=== PATIENT | male | born 1955 | race Caucasian/White ===

== ENCOUNTER 2018-08-03 11:44 | Observation (INO) ==
[2018-08-03 12:07] LABS: Baso % (Auto) 0.9 % (0.0-2.0); Eos # (Auto) 0.5 th/mm3 (0.0-0.4); Eos % (Auto) 10.9 % (0.0-4.0); Hematocrit 41.7 % (39.0-51.0); Hemoglobin 14.5 gm/dL (13.0-17.0); Lymph # (Auto) 1.2 th/mm3 (1.0-4.8); Lymph % (Auto) 23.3 % (9.0-44.0); Mean Corpuscular HGB Conc 34.8 % (32.0-36.0); Mean Corpuscular Hemoglobin 31.9 pg (27.0-34.0); Mean Corpuscular Volume 91.8 fL (80.0-100.0); Mean Platelet Volume 7.7 fL (7.0-11.0); Mono # (Auto) 0.5 th/mm3 (0.0-0.9); Mono % (Auto) 9.6 % (0.0-8.0); Neut # (Auto) 2.8 th/mm3 (1.8-7.7); Neut % (Auto) 55.3 % (16.0-70.0); Platelet Count 195 th/mm3 (150-450); Red Blood Count 4.55 mil/mm3 (4.50-5.90); Red Cell Distribution Width 13.8 % (11.6-17.2)
--- NOTE | 2018-08-03 12:12 | ED ---
HPI General Chief Complaint: Chest Pain Stated Complaint: chest pain/bp up/lt arm pain/sob Time Seen by Provider: 08/03/18 11:53 Source: patient and family Mode of arrival: ambulatory Limitations: no limitations History of Present Illness HPI narrative: Patient is a 63-year-old male who presents the emergency room with his for evaluation of chest pain and confusion. He reports that about 2 hours ago, he was sitting down with his and all of a sudden he became confused. reports that patient was unresponsive for a few minutes and then was able to come to. Patient reports that he began to have left sided chest pain which radiated up his neck and then down his left arm. Reports shortness of breath with this chest pain. Patient denies any diaphoresis, denies any nausea or vomiting with the symptoms. did take his blood pressure at home and noted a systolic blood pressure in the 200s. Patient reports a strong history of hypertension, he did take his antihypertensives this morning. Patient reports that this has happened to him multiple times in the past, his doctor at the [facility] has told him that his symptoms are most likely cardiac in nature. He was told that if he had return of the symptoms, he was to return to the emergency room for evaluation. Patient also reports that he was due for an ultrasound of his heart as well as further workup for his chest pain coming up this week. Patient does not have a wool classer, he has never had an KS, has never had a CABG in the past. MD complaint: Reports chest pain STEMI Alert: No Onset (ago): hour(s) (2 hours) Duration: constant Onset: during rest Pain location: Reports left chest Severity: moderate Quality: Reports aching Pain radiation: Reports LUE and neck Relieving factors: nothing Exacerbating factors: nothing Context: Reports recent illness Associated symptoms: Reports dyspnea Treatments prior to arrival chest pain: Reports none Related Data Home Medications Medication Instructions Recorded Confirmed allopurinol 300 mg PO DAILY 08/03/18 08/03/18 amlodipine 10 mg PO DAILY 08/03/18 08/03/18 atorvastatin 10 mg PO DAILY 08/03/18 08/03/18 hydrochlorothiazide 12.5 mg PO DAILY 08/03/18 08/03/18 levetiracetam 500 mg PO DAILY 08/03/18 08/03/18 thiamine HCl (vitamin B1) 100 mg PO DAILY 08/03/18 08/03/18 Allergies Allergy/AdvReac Type Severity Reaction Status Date / Time codeine Allergy Severe Hives Verified 08/03/18 12:19 tramadol AdvReac Severe UNABLE TO Verified 08/03/18 12:19 URINATE *MDRO Multi-Drug Resistant AdvReac Unknown Hives Uncoded 08/03/18 12:00 Organism Review of Systems ROS: all other systems reviewed are negative [facility] Medical History Medical History Gout (Acute) High cholesterol (Acute) History of intestine removal (Acute) History of seizure (Acute) RA (rheumatoid arthritis) (Acute) Hypertension (Acute) Surgical History Surgical History Hx of appendectomy (Acute) Social History Social History Substance History: No History of Abuse Smoking Status: Never smoker How Often Do You Have a Drink Containing Alcohol: Never Recent Travel in [facility] within the Last 8 Weeks: No Recent Out of Country Travel within the Last 8 Weeks: No Exam Narrative Exam Narrative: GENERAL: moderate distress SKIN: Focused skin assessment warm/dry. HEAD: Atraumatic. Normocephalic. EYES: Pupils equal and round. No scleral icterus. No injection or drainage. ENT: No nasal bleeding or discharge. Mucous membranes pink and moist. NECK: Trachea midline. No JVD. CARDIOVASCULAR: Regular rate and rhythm. No murmur appreciated. RESPIRATORY: No accessory muscle use. Clear to auscultation. Breath sounds equal bilaterally. GASTROINTESTINAL: Abdomen soft, non-tender, nondistended. Hepatic and splenic margins not palpable. MUSCULOSKELETAL: No obvious deformities. No clubbing. No cyanosis. No edema. NEUROLOGICAL: Awake and alert. No obvious cranial nerve deficits. Motor grossly within normal limits. Normal speech. CN 2-12 grossly intact with no neurological deficits PSYCHIATRIC: Anxious mood and affect; insight and judgment normal. Course Initial Documented Vital Signs Temperature 98.9 F 08/03/18 11:52 Pulse Rate 58 L 08/03/18 11:52 Respiratory Rate 20 08/03/18 11:52 Blood Pressure 212/117 H 08/03/18 11:52 Pulse Oximetry 96 08/03/18 11:52 Last Documented Vital Signs Temperature 98.9 F 08/03/18 11:52 Pulse Rate 57 L 08/03/18 13:50 Respiratory Rate 20 08/03/18 13:50 Blood Pressure 148/94 H 08/03/18 13:50 Pulse Oximetry 97 08/03/18 13:50 Medical Decision Making MDM Narrative Medical decision making narrative: During the course of the patients emergency department visit, the patients history, examination, and differential diagnosis were reviewed with the patient. The patient was placed on a secured entrance monitor with oximetry and frequent blood pressure monitoring. The patient had an IV access obtained and blood work sent for analysis. The patient was initially provided an aspirin as well as SL nitro The patients laboratory studies were reviewed and remarkable for trop neg x 1 Radiology studies were reviewed and remarkable: CT of the head negative with no evidence of acute infarct, hemorrhage or mass or edema x-ray of the chest with no evidence of acute cardiopulmonary process. Patient with resolution of chest pain after 3 sublingual nitroglycerin, blood pressure also improved and is now 148/94. Patient will require admission to the hospital for further workup of his hypertensive urgency as well as his chest pain. Of note, patient reports that he did have a stress test yesterday at the [facility], he does not know the results of the stress test. Reports that he is due for echocardiogram. Case reviewed with [facility] who accepts pt to service Medical Screen Exam Complete: Yes Emergency Medical Condition: Yes Differential Diagnosis Differential Diagnosis: ACS, arrhythmia, electrolyte abnormality, infection Medical Records Medical records reviewed: Yes I reviewed the patient's medical records. Lab Data Lab results reviewed: Yes I reviewed the patient's lab results. Result diagrams: 08/03/18 11:50 08/03/18 11:50 Lab Results 08/03/18 08/03/18 08/03/18 Range/Units 11:50 11:50 11:50 CBC w Diff Auto diff final WBC 5.0 (4.0-11.0) th/mm3 RBC 4.55 (4.50-5.90) mil/mm3 Hgb 14.5 (13.0-17.0) gm/dL Hct 41.7 (39.0-51.0) % MCV 91.8 (80.0-100.0) fL MCH 31.9 (27.0-34.0) pg MCHC 34.8 (32.0-36.0) % RDW 13.8 (11.6-17.2) % Plt Count 195 (150-450) th/mm3 MPV 7.7 (7.0-11.0) fL Neut % (Auto) 55.3 (16.0-70.0) % Lymph % (Auto) 23.3 (9.0-44.0) % Scott % (Auto) 9.6 H (0.0-8.0) % Eos % (Auto) 10.9 H (0.0-4.0) % Baso % (Auto) 0.9 (0.0-2.0) % Neut # (Auto) 2.8 (1.8-7.7) th/mm3 Lymph # (Auto) 1.2 (1.0-4.8) th/mm3 Scott # (Auto) 0.5 (0.0-0.9) th/mm3 Eos # (Auto) 0.5 H (0.0-0.4) th/mm3 Baso # (Auto) 0.0 (0.0-0.2) th/mm3 WBC Differential . Differential Comment . PT 9.5 L (9.8-11.6) sec INR 0.9 Ratio APTT 25.4 (23.4-31.7) sec Sodium 139 (136-145) meq/L Potassium 4.2 (3.5-5.1) meq/L Chloride 105 (98-107) meq/L Carbon Dioxide 24.5 (21.0-32.0) meq/L Anion Gap 10 (5-15) meq/L BUN 10 (7-18) mg/dL Creatinine 1.10 (0.60-1.30) mg/dL Estimated GFR 68 L (>89) mL/min Random Glucose 106 (74-106) mg/dL Calcium 8.9 (8.5-10.1) mg/dL Total Creatine Kinase 108 (39-308) U/L CK-MB (CK-2) Less than 1.0 (0.5-3.6) ng/mL Troponin I Less than 0.02 L (0.02-0.05) ng/mL Imaging Data Attestation: I personally reviewed and interpreted this imaging study as follows : Radiologist's impression: Chest X-Ray 08/03/18 00:00 CONCLUSION: No evidence of acute cardiopulmonary process. Head CT 08/03/18 11:53 CONCLUSION: 1. Negative CT Head non contrast. 2. No evidence of acute infarct, hemorrhage, mass or edema. . ECG Data EKG Prior to Arrival: No Attestation: I personally reviewed and interpreted this ECG as follows: Interpretation: EKG at 1147: Sinus juanpablo at 58bpm, qt/qtc: 427/424, lbbb no acute changes Discharge Plan Discharge Disposition Patient Disposition: 30 Still Patient Discharge Condition Condition: Fair Discharge Details Diagnosis: Hypertensive urgency, Chest pain Physicians Team ED Provider: Leah Bhat Primary Care Provider: [facility],Physician 's Rxs /Orders / Referrals /Forms Prescriptions: No Action levetiracetam 500 mg Tablet 500 mg PO DAILY RF: 0 amlodipine 10 mg Tablet 10 mg PO DAILY RF: 0 atorvastatin 10 mg Tablet 10 mg PO DAILY RF: 0 thiamine HCl (vitamin B1) 100 mg Tablet 100 mg PO DAILY RF: 0 allopurinol 300 mg Tablet 300 mg PO DAILY RF: 0 hydrochlorothiazide 25 mg Tablet 12.5 mg PO DAILY RF: 0 Discharge Instructions Patient Printed Instructions: Chest Pain (ED) Status ED Status: With Doctor
[2018-08-03 12:17] LABS: Chloride 105 meq/L (98-107); Potassium 4.2 meq/L (3.5-5.1); Sodium 139 meq/L (136-145)
[2018-08-03 12:19] LABS: Anion Gap 10 meq/L (5-15); Calcium 8.9 mg/dL (8.5-10.1); Carbon Dioxide 24.5 meq/L (21.0-32.0); Glucose,Random 106 mg/dL (74-106)
[2018-08-03 12:20] LABS: Blood Urea Nitrogen 10 mg/dL (7-18)
--- NOTE | 2018-08-03 12:21 | XR ---
EXAM DATE: 08/03/2018 12:07 PM EST AGE/SEX: 63 years / Male INDICATIONS: Shortness of breath and tightness in chest. CLINICAL DATA: This is the patient's initial encounter. Patient reports that signs and symptoms have been present for 1 day and indicates a pain score of 3/10. MEDICAL/SURGICAL HISTORY: None. None. COMPARISON: [facility] – [place], CHEST SINGLE AP, 01/12/2015. . FINDINGS: Lungs are hypoaerated but otherwise clear. There is no evidence of acute airspace disease or signific ant congestion. Heart is mildly enlarged. CONCLUSION: No evidence of acute cardiopulmonary process. Electronically signed by: Allan Jin MD 08/03/2018 12:20 PM EST
[2018-08-03 12:23] LABS: Glomerular Filtration Rate 68 mL/min (>89)
[2018-08-03 12:26] LABS: Creatine Kinase 108 U/L (39-308)
[2018-08-03 12:29] LABS: Activated Partial Thrombo Time 25.4 sec (23.4-31.7); INR 0.9 Ratio; Prothrombin Time 9.5 sec (9.8-11.6)
--- NOTE | 2018-08-03 12:32 | CT ---
EXAM DATE: 08/03/2018 12:27 PM EST AGE/SEX: 63 years / Male INDICATIONS: Altered mental status. Cephalgia. CLINICAL DATA: This is the patient's initial encounter. Patient reports that signs and symptoms have been present for 1 day and indicates a pain score of 2/10. MEDICAL/SURGICAL HISTORY: None. None. RADIATION DOSE: 54.38 CTDI (mGy) COMPAR[place]: [facility] [place], 01/08/2015. . TECHNIQUE: CT of the head without contrast. Using automated exposure control and adjustment of the mA and/or kV according to patient size, radiation dose was kept as low as reasonably achievable to ob tain optimal diagnostic quality images. DICOM format image data is available electronically for revi ew and comparison. FINDINGS: Cerebrum: The ventricles are normal for age. No evidence of midline shift, mass lesion, hemorrhage or acute infarction. No extraaxial fluid collections are seen. Posterior Fossa: The cerebellum and brainstem are intact. The 4th ventricle is midline. The cerebe llopontine angle is unremarkable. Extracranial: The visualized portion of the orbits is intact. Skull: The calvaria is intact. No evidence of skull fracture. CONCLUSION: 1. Negative CT Head non contrast. 2. No evidence of acute infarct, hemorrhage, mass or edema. . Electronically signed by: Allan Jin MD 08/03/2018 12:31 PM EST
[2018-08-03] MEDS ORDERED: Bisacodyl 10 MG Supp RECTAL PRN (14:41)
[2018-08-03] MEDS ORDERED: Acetaminophen 325 MG Tablet PO PRN (14:41)
[2018-08-03] MEDS ORDERED: Temazepam 15 MG Capsule PO PRN (14:41)
[2018-08-03] MEDS: Sod Chloride 0.9% Inj 1,000 ML IV.CONT SCH (15:00)
--- NOTE | 2018-08-03 15:52 | ECG ---
Date Performed: 08/03/2018 Time Performed: 11:47:51 PTAGE: 63 years EKG: SINUS BRADYCARDIA MARKED LEFT AXIS DEVIATION LEFT BUNDLE BRANCH BLOCK ABNORMAL ECG Compared to prior electrocardiogram, Premature atrial contractions are no longer present. PREVIOUS TRACING : 01/09/2015 11.59 DOCTOR: Elgin Adams Interpretating Date/Time 08/03/2018 15:50:16
--- NOTE | 2018-08-03 16:24 | P.HP ---
History of Present Illness Primary Care Physician: Phys[facility] Chief Complaint: Altered mentation, chest pain History of Present Illness: 63-year-old male with known history of hypertension, hyperlipidemia, seizure disorder, gout, arthritis who presented to the hospital for evaluation of chest pain, altered mentation. Patient was in his normal state of health until this morning when he woke up and he was having some discomfort in his chest located in the midsternal region radiating up into the left side of his neck and down to his left arm. Patient denied any nausea, vomiting, lightheadedness, dizziness. Patient states that he did have episodes of where he could felt as if he could not catch his breath. He denied any diaphoresis. His pain remained persistent for approximately 2 hours prior to him coming to the hospital. However during this time the patient was sitting in his chair and he Touching his left arm and neck in which his asked him what the problem was and he was complaining of pain at that time. The patient had an episode of altered mentation where he appeared to be looking off into space and unresponsive. Because of the combination of his symptoms they came to the hospital for evaluation. Upon presentation to the emergency department patient was found to have rather accelerated hypertension with blood pressure 212/117, associated altered mentation, chest pain which meets criteria for hypertensive urgency patient was given 3 nitroglycerin tablets with improvement of his blood pressure and chest pain. Patient has had these symptoms previously. Patient does get these episodes of altered mentation where he stares off into space quite frequently. They indicate usually happens to him during times of exertion. Patient does not have any tonic-clonic movements during these episodes. There are other episodes when he is having his seizures arms do come up into his face and chest area and stiffen up but no tremors or shaking. No loss of bowel or bladder control. Patient is followed by the [facility] but does not have a neurologist. They are in the process of getting a workup performed. Patient also has been experiencing cardiac issues where they are undergoing management by the [facility]. It was indicated that he has a abnormal heart rate and there is plans to do a Holter monitor. Echocardiogram. He does not have a social media manager at this time. Patient indicates that his last stress test was over a year ago. Patient currently is asymptomatic. - Diagnosis (1) Encephalopathy (2) Hypertensive urgency (3) Chest pain Inpatient Certification: I certify that the inpatient services were ordered in accordance with Medicare regulations governing the order. This includes certification that hospital inpatient services are reasonable and necessary and in the case of services not specified as inpatient-only under 42 CFR 419.22(n), that they are appropriately provided as inpatient services in accordance to with the 2-midnight benchmark under 43 CFR 412.3(e) Estimated Total Length of Stay (Days): 3 Plans for Post Hospital Care: Not yet determined Review of Systems All other systems reviewed negative except as stated in HPI Cardiovascular: Reports chest pain Musculoskeletal: Reports neck pain Neurologic: Reports confusion PMFSH - History History Provided By: Patient, Family Member - Medical History Medical History: Medical History (Last Updated 08/03/18 @ 16:15 by ALEE Ronquillo) Gout High cholesterol History of TIA (transient ischemic attack) History of peritonitis History of seizure RA (rheumatoid arthritis) Hypertension - Surgical History Surgical History: Surgical History (Last Updated 08/03/18 @ 16:14 by ALEE Ronquillo) History of partial colectomy Hx of appendectomy - Family History Family History: Family History (Last Updated 08/03/18 @ 16:15 by ALEE Ronquillo) Father Family history of stroke - Tobacco History Second Hand Smoke Exposure: No Smoking Status: Never smoker - Alcohol History How Often Do You Have a Drink Containing Alcohol: Never - Substance Use History Substance History: No History of Abuse - Travel History Recent Travel in the [place] Within the Last 8 Weeks: No Recent Travel Out of the Country Within the Last 8 Weeks: No - Immunization History Tetanus Immunization: <5 Years Medications and Allergies Active Medications: Active Medications Acetaminophen (Tylenol) 650 mg PO Q4H PRN PRN Reason: Temp > 100.4 Al Hydroxide/Mg Hydroxide (Milk Of Merari Liq) 30 ml PO Q12H PRN PRN Reason: Mild Constipation Allopurinol (Zyloprim) 300 mg PO DAILY [facility] Amlodipine Besylate (Norvasc) 10 mg PO DAILY [facility] Aspirin (Aspirin) 325 mg PO DAILY [facility] Atorvastatin Calcium (Lipitor) 10 mg PO DAILY [facility] Bisacodyl (Dulcolax Supp) 10 mg RECTAL DAILY PRN PRN Reason: SEVERE CONSITIPATION Clonidine HCl (Catapres) 0.1 mg PO Q6H PRN PRN Reason: SBP>180, DBP>110 Enalaprilat (Vasotec Inj) 1.25 mg IV.PUSH Q6H PRN PRN Reason: SBP>160, DBP>90 Heparin Sodium (Porcine) (Heparin Inj) 5,000 units SQ Q12H [facility] Hydrochlorothiazide (Microzide) 12.5 mg PO DAILY [facility] Sodium Chloride (Ns Inj) 1,000 mls @ 100 mls/hr IV.CONT .Q10H [facility] Last Admin: 08/03/18 15:00 Dose: 100 mls/hr Lactulose (Lactulose Liq) 30 ml PO DAILY PRN PRN Reason: SEVERE CONSITIPATION Levetiracetam (Keppra) 500 mg PO DAILY [facility] Lorazepam (Ativan Inj) 1 mg IV.PUSH Q15M PRN PRN Reason: SEIZURES Metoprolol Tartrate (Lopressor) 12.5 mg PO BID [facility] Miscellaneous (Pill Splitter) 1 each OTHER UNSCH PRN PRN Reason: SEE LABEL COMMENTS Nitroglycerin (Nitro-Bid 2% Oint) 1 inch TOPICAL Q6HR [facility] Ondansetron HCl (Zofran Inj) 4 mg IV.PUSH Q6H PRN PRN Reason: NAUSEA OR VOMITING Senna/Docusate Sodium (Cherie-Colace) 1 tab PO BID [facility] Sennosides (Senokot) 17.2 mg PO Q12H PRN PRN Reason: Moderate Constipation Temazepam (Restoril) 15 mg PO HS PRN PRN Reason: INSOMNIA Thiamine HCl (Vitamin B1) 100 mg PO DAILY [facility] Allergies Allergy/AdvReac Type Severity Reaction Status Date / Time codeine Allergy Severe Hives Verified 08/03/18 12:19 tramadol AdvReac Severe UNABLE TO Verified 08/03/18 12:19 URINATE *MDRO Multi-Drug Resistant AdvReac Unknown Hives Uncoded 08/03/18 12:00 Organism Home Medications Medication Instructions Recorded Confirmed Type allopurinol 300 mg PO DAILY 08/03/18 08/03/18 History amlodipine 10 mg PO DAILY 08/03/18 08/03/18 History atorvastatin 10 mg PO DAILY 08/03/18 08/03/18 History hydrochlorothiazide 12.5 mg PO DAILY 08/03/18 08/03/18 History levetiracetam 500 mg PO DAILY 08/03/18 08/03/18 History thiamine HCl (vitamin B1) 100 mg PO DAILY 08/03/18 08/03/18 History Exam Vital signs: Vital Signs 08/03/18 11:52 08/03/18 12:00 08/03/18 12:18 Temperature 98.9 F Pulse Rate 58 L 58 L 54 L Respiratory Rate 20 20 Blood Pressure 212/117 H 162/102 H Pulse Oximetry 96 96 96 08/03/18 12:45 08/03/18 13:19 08/03/18 13:33 Temperature Pulse Rate 55 L 52 L 55 L Respiratory Rate 20 18 20 Blood Pressure 170/101 H 163/103 H 150/99 H Pulse Oximetry 97 99 99 08/03/18 13:50 Temperature Pulse Rate 57 L Respiratory Rate 20 Blood Pressure 148/94 H Pulse Oximetry 97 Intake & Output 08/02/18 08/03/18 08/03/18 18:59 06:59 18:59 Output Total 450 / 450 Balance -450 / -450 Weight 70 kg Output: Urine 450 / 450 Narrative: GENERAL: Well-developed, well-nourished, in no acute distress. alert and orientated HEENT: Head is normocephalic without any lesions or masses noted. Facial features are symmetric. Eyes: Pupils equal round reactive to light. Extraocular muscles are intact. Conjunctivae were clear. Oropharyngeal: Pharynx without any erythema edema. Tongue is midline without deviation. Buccal mucosa is moist without any masses or lesions NECK: Supple without any masses. Trachea midline no deviation. No JVD, no bruits are appreciated CARDIAC: Regular rhythm, regular rate. S1/S2 are heard. No murmurs gallops or rubs. LUNGS: Clear to auscultation bilaterally. No wheeze, rhonchi or rales. No use of accessory muscles on inspiration or expiration. ABDOMEN: Soft, nontender. Nondistended. Bowel sounds heard in all 4 quadrants. No organomegaly or masses. Negative rebound, negative guarding EXTREMITIES: No edema, pulses are equal bilaterally. No cyanosis or clubbing NEUROLOGY: Mood and affect appear appropriate. Cranial nerves II through XII grossly intact. Muscle strength 5/5 in upper and lower extremities bilaterally. Deep tendon reflexes are 2+ in upper and lower extremities bilaterally. Results - Labs CBC & Chem 7: 08/03/18 11:50 08/03/18 11:50 Labs: Laboratory Results - last 24 hr 08/03/18 08/03/18 08/03/18 11:50 11:50 11:50 CBC w Diff Auto diff final WBC 5.0 RBC 4.55 Hgb 14.5 Hct 41.7 MCV 91.8 MCH 31.9 MCHC 34.8 RDW 13.8 Plt Count 195 MPV 7.7 Neut % (Auto) 55.3 Lymph % (Auto) 23.3 [place] % (Auto) 9.6 H Eos % (Auto) 10.9 H Baso % (Auto) 0.9 Neut # (Auto) 2.8 Lymph # (Auto) 1.2 [place] # (Auto) 0.5 Eos # (Auto) 0.5 H Baso # (Auto) 0.0 WBC Differential . Differential Comment . PT 9.5 L INR 0.9 APTT 25.4 Sodium 139 Potassium 4.2 Chloride 105 Carbon Dioxide 24.5 Anion Gap 10 BUN 10 Creatinine 1.10 Estimated GFR 68 L Random Glucose 106 Calcium 8.9 Total Creatine Kinase 108 CK-MB (CK-2) Less than 1.0 Troponin I Less than 0.02 L - Imaging Impressions Chest X-Ray 08/03/18 00:00 CONCLUSION: No evidence of acute cardiopulmonary process. Head CT 08/03/18 11:53 CONCLUSION: 1. Negative CT Head non contrast. 2. No evidence of acute infarct, hemorrhage, mass or edema. . Caprini VTE Risk Assessment Caprini VTE Risk Assessment: Moderate/High Risk (score >= 2) Caprini Risk Assessment Model: Point Value = 1 Point Value = 2 Point Value = 3 Point Value = 5 Age 41-60 Minor surgery BMI > 25 kg/m2 Swollen legs Varicose veins or History of unexplained or recurrent spontaneous Oral contraceptives or hormone replacement Sepsis (< 1 month) Serious lung disease, including pneumonia (< 1 month) Abnormal pulmonary function Acute myocardial infarction Congestive heart failure (< 1 month) History of inflammatory bowel disease Medical patient at bed rest Age 61-74 Arthroscopic surgery Major open surgery (> 45 min) Laparoscopic surgery (> 45 min) Malignancy Confined to bed (> 72 hours) Immobilizing plaster cast Central venous access Age >= 75 History of VTE Family history of VTE Factor V Leiden Prothrombin [id number] Lupus anticoagulant Anticardiolipin antibodies Elevated serum homocysteine Heparin-induced thrombocytopenia Other congenital or acquired thrombophilia Stroke (< 1 month) Elective arthroplasty Hip, pelvis, or leg fracture Acute spinal cord injury (< 1 month) Prophylaxis Regimen: Total Risk Factor Score Risk Level Prophylaxis Regimen 0-1 Low Early ambulation 2 Moderate Order ONE of the following: *Sequential Compression Device (SCD) *Heparin 5000 units SQ BID 3-4 Higher Order ONE of the following medications: *Heparin 5000 units SQ TID *Enoxaparin/Lovenox 40 mg SQ daily (WT < 150 kg, CrCl > 30 mL/min) *Enoxaparin/Lovenox 30 mg SQ daily (WT < 150 kg, CrCl > 10-29 mL/min) *Enoxaparin/Lovenox 30 mg SQ BID (WT < 150 kg, CrCl > 30 mL/min) AND/OR *Sequential Compression Device (SCD) 5 or more Highest Order ONE of the following medications: *Heparin 5000 units SQ TID (Preferred with Epidurals) *Enoxaparin/Lovenox 40 mg SQ daily (WT < 150 kg, CrCl > 30 mL/min) *Enoxaparin/Lovenox 30 mg SQ daily (WT < 150 kg, CrCl > 10-29 mL/min) *Enoxaparin/Lovenox 30 mg SQ BID (WT < 150 kg, CrCl > 30 mL/min) AND *Sequential Compression Device (SCD) Assessment and Plan - Assessment (1) Encephalopathy Code(s): G93.40 - Encephalopathy, unspecified Status: Acute (2) Hypertensive urgency Code(s): I16.0 - Hypertensive urgency Status: Acute (3) Chest pain Code(s): R07.9 - Chest pain, unspecified Status: Acute - Plan Hypertensive urgency -Patient presented with blood pressure 212/117 with associated chest pain, encephalopathy -Patient was given nitroglycerin x3 with improvement of his blood pressure and mentation -Patient's home medication was continued to include amlodipine, HCTZ, -addition of Lopressor, Nitropaste, -Vasotec as needed, clonidine as needed -Possible need to start Cardene if blood pressure is uncontrolled Chest pain -Patient is with increased risk factors include age, male, hypertension, hyperlipidemia -We will continue to trend patient's cardiac enzymes and serial EKGs -Initial EKG does show bradycardia with left bundle branch block -We will continue cardioprotection with aspirin, beta-mich, nitroglycerin, statin, amlodipine -Obtain echocardiogram -Consult cardiology for further recommendations -Discussed with social media manager who indicated that if patient blood pressure are controlled and cardiac enzymes, EKGs do not have any elevations or significant changes anticipate performing myocardial perfusion study in the a.m. for further evaluation Encephalopathy -Could be possible hypertensive encephalopathy versus seizure activity -Continue monitor neurological function -Seizure precautions -Obtain EEG -Ativan as needed for seizures -CT of the brain was performed which did not indicate any acute abnormality -Continue Keppra 500 mg daily -Consult neurology for further recommendations -Further laboratory studies to include B12, folate, sed rate, TSH, RPR, ammonia level Hyperlipidemia -Obtain lipid panel -Continue statin History of seizures -Home medication have been continued DVT prevention -Sequential compression devices -Subcutaneous heparin
[2018-08-03 17:26] LABS: Albumin 3.8 g/dL (3.4-5.0)
[2018-08-03 17:29] LABS: Alanine Aminotransferase 45 U/L (12-78); Aspartate Aminotransferase 48 U/L (15-37)
[2018-08-03 17:30] LABS: Total Protein 7.4 g/dL (6.4-8.2)
[2018-08-03 17:32] LABS: Alkaline Phosphatase 71 U/L (45-117)
--- NOTE | 2018-08-03 17:33 | ECHRPT ---
Indication: Chest Pain CONCLUSIONS Normal left ventricular size. Mild concentric left ventricular hypertrophy. The left ventricular systolic function is low normal with an estimated ejection fraction in the rang e of 50- 55%. There is abnormal septal motion consistent with an intraventricular conduction delay. Trace aortic valve regurgitation. There is trace tricuspid valve regurgitation. The estimated pulmonary arterial pressure is 34 mmHg. BP: / HR: Rhythm: MEASUREMENTS (Male / Female) Normal Values Technical Quality:Good 2D ECHO LV Diastolic Diameter PLAX 4.1 cm 4.2 - 5.9 / 3.9 - 5.3 cm LV Systolic Diameter PLAX 2.9 cm IVS Diastolic Thickness 1.2 cm 0.6 - 1.0 / 0.6 - 0.9 cm LVPW Diastolic Thickness 1.1 cm 0.6 - 1.0 / 0.6 - 0.9 cm LV Relative Wall Thickness 0.6 RV Internal Dim ED PLAX 4.0 cm LVOT Diameter 2.2 cm Aortic Root Diameter 3.1 cm LA Systolic Diameter LX 3.6 cm 3.0 - 4.0 / 2.7 - 3.8 cm DOPPLER AV Peak Velocity 118.0 cm/s AV Peak Gradient 5.6 mmHg LVOT Peak Velocity 94.3 cm/s LVOT Peak Gradient 3.6 mmHg AV Area Cont Eq pk 3.0 cm Mitral E Point Velocity 46.9 cm/s Mitral A Point Velocity 78.0 cm/s Mitral E to A Ratio 0.6 LV E' Lateral Velocity 5.2 cm/s Mitral E to LV E' Lateral Ratio 9.1 LV E' Septal Velocity 6.7 cm/s Mitral E to LV E' Septal Ratio 7.0 TR Peak Velocity 246.0 cm/s TR Peak Gradient 24.2 mmHg Right Atrial Pressure 10.0 mmHg Pulmonary Artery Systolic Pressu 34.2 mmHg Right Ventricular Systolic Press 34.2 mmHg PV Peak Velocity 102.0 cm/s PV Peak Gradient 4.2 mmHg FINDINGS LEFT VENTRICLE Normal left ventricular size. Mild concentric left ventricular hypertrophy. The left ventricular systolic function is low normal with an estimated ejection fraction in the rang e of 50- 55%. There is abnormal septal motion consistent with an intraventricular conduction delay. RIGHT VENTRICLE Normal right ventricular size and systolic function. LEFT ATRIUM The left atrial size is normal. RIGHT ATRIUM The right atrial size is normal. ATRIAL SEPTUM Normal atrial septal thickness without atrial level shunting by limited color doppler interrogation. AORTA The aortic root and proximal ascending aorta are normal in size on limited imaging. MITRAL VALVE Structurally normal mitral valve. No mitral valve stenosis or regurgitation. AORTIC VALVE Trileaflet aortic valve. Trace aortic valve regurgitation. TRICUSPID VALVE There is trace tricuspid valve regurgitation. The estimated pulmonary arterial pressure is 34 mmHg. PULMONARY VALVE No pulmonary valve regurgitation or stenosis. VESSELS The inferior vena cava is normal in size. PERICARDIUM No pericardial effusion. Basil Martin MD, FACC (Electronically Signed) Final Date:03 August 2018 17:32
[2018-08-03 17:39] LABS: Thyroid Stimulating Hormone 0.642 uIU/mL (0.358-3.740)
[2018-08-03 17:44] LABS: Creatine Kinase 80 U/L (39-308)
[2018-08-03] MEDS: Heparin - SQ 10,000 UNITS/ML Vial SQ SCH (17:56)
[2018-08-03 19:52] LABS: Vitamin B12 613 pg/mL (193-986)
[2018-08-03] MEDS: Metoprolol Tartrate 25 MG Tablet PO SCH (20:29)
[2018-08-03] MEDS: Senna/Docusate Sodium 8.6/50 MG Tablet PO SCH (20:30)
--- NOTE | 2018-08-03 21:49 | ECG ---
Date Performed: 08/03/2018 Time Performed: 17:16:20 PTAGE: 63 years EKG: Sinus rhythm MARKED LEFT AXIS DEVIATION LEFT BUNDLE BRANCH BLOCK ABNORMAL ECG No significant change from prior el ectrocardiogram. PREVIOUS TRACING : 08/03/2018 11.47 DOCTOR: Elgin Adams Interpretating Date/Time 08/03/2018 21:47:26
[2018-08-04 00:32] LABS: Creatine Kinase 66 U/L (39-308)
[2018-08-04] MEDS: Sod Chloride 0.9% Inj 1,000 ML IV.CONT SCH ×3 (01:05→23:56)
[2018-08-04 02:25] LABS: Cholesterol 157 mg/dL (120-200); Triglycerides 376 mg/dL (42-150)
[2018-08-04 02:26] LABS: Chol/HDL Ratio 3.07 Ratio; HDL Cholesterol 51.1 mg/dL (40.0-60.0); LDL Cholesterol,Calculated 31 mg/dL (0-99)
[2018-08-04] MEDS: Heparin - SQ 10,000 UNITS/ML Vial SQ SCH ×2 (05:04→18:50)
[2018-08-04 06:00] LABS: Eos # (Auto) 0.4 th/mm3 (0.0-0.4); Eos % (Auto) 8.1 % (0.0-4.0); Hematocrit 38.4 % (39.0-51.0); Hemoglobin 13.3 gm/dL (13.0-17.0); Lymph # (Auto) 1.2 th/mm3 (1.0-4.8); Lymph % (Auto) 23.5 % (9.0-44.0); Mean Corpuscular HGB Conc 34.6 % (32.0-36.0); Mean Corpuscular Hemoglobin 31.8 pg (27.0-34.0); Mean Corpuscular Volume 91.7 fL (80.0-100.0); Mean Platelet Volume 7.3 fL (7.0-11.0); Mono # (Auto) 0.4 th/mm3 (0.0-0.9); Mono % (Auto) 8.7 % (0.0-8.0); Neut % (Auto) 58.7 % (16.0-70.0); Platelet Count 156 th/mm3 (150-450); Potassium 3.5 meq/L (3.5-5.1); Red Blood Count 4.19 mil/mm3 (4.50-5.90); Red Cell Distribution Width 13.7 % (11.6-17.2)
[2018-08-04 06:02] LABS: Calcium 8.3 mg/dL (8.5-10.1)
[2018-08-04 06:03] LABS: Carbon Dioxide 26.5 meq/L (21.0-32.0)
[2018-08-04] MEDS: Allopurinol 300 MG Tablet PO SCH (08:23)
[2018-08-04] MEDS: amLODIPine 10 MG Tablet PO SCH (08:23)
[2018-08-04] MEDS: Metoprolol Tartrate 25 MG Tablet PO SCH ×2 (08:23→20:33)
[2018-08-04] MEDS: Aspirin 325 MG Tablet PO SCH (08:24)
[2018-08-04] MEDS ORDERED: levETIRAcetam 500 MG Tablet PO SCH (09:00)
--- NOTE | 2018-08-04 09:44 | P.PNIM ---
Subjective Interval history: 63-year-old male who is seen and examined today for follow-up with altered mental status, chest pain. Patient denies any recurrent chest pain. Patient denied any recurrent episodes of confusion or altered mentation. Patient blood pressure is still a elevated despite medications. Patient remains afebrile. Physical Exam Vital signs: Vital Signs 08/03/18 11:52 08/03/18 12:00 08/03/18 12:18 Temperature 98.9 F Pulse Rate 58 L 58 L 54 L Respiratory Rate 20 20 Blood Pressure 212/117 H 162/102 H Pulse Oximetry 96 96 96 08/03/18 12:45 08/03/18 13:19 08/03/18 13:33 Temperature Pulse Rate 55 L 52 L 55 L Respiratory Rate 20 18 20 Blood Pressure 170/101 H 163/103 H 150/99 H Pulse Oximetry 97 99 99 08/03/18 13:50 08/03/18 15:32 08/03/18 16:00 Temperature Pulse Rate 57 L 54 L 54 L Respiratory Rate 20 23 25 H Blood Pressure 148/94 H 178/92 H 197/109 H Pulse Oximetry 97 97 08/03/18 17:00 08/03/18 20:00 08/04/18 00:00 Temperature 97.7 F 97.8 F Pulse Rate 58 L 56 L 52 L Respiratory Rate 29 H 20 16 Blood Pressure 170/91 H 159/90 H 145/77 H Pulse Oximetry 97 98 98 08/04/18 04:00 08/04/18 08:00 Temperature 97.7 F Pulse Rate 55 L Respiratory Rate 17 Blood Pressure 171/87 H Pulse Oximetry 98 98 Intake & Output 08/03/18 08/04/18 08/04/18 18:59 06:59 18:59 Intake Total 1853 / 1853 Output Total 450 / 450 1300 / 1300 Balance -450 / -450 553 / 553 Weight 69.5 kg 73.1 kg Intake: IV 1613 / 1613 NS Inj 1,000 ML @ 100 mls/hr IV 1613 / 1613 .CONT .Q10H [facility] Rx#:[id number] Oral 240 / 240 Output: Urine 450 / 450 1300 / 1300 Other: Date of Last Bowel Movement 08/03/18 08/03/18 # Bowel Movements 0 Weight On Admission 69.5 kg Narrative: GENERAL: Well-developed, well-nourished, in no acute distress. alert and orientated HEENT: Head is normocephalic without any lesions or masses noted. Facial features are symmetric. Eyes: Extraocular muscles are intact. Conjunctivae were clear. NECK: Supple without any masses. Trachea midline no deviation. No JVD, CARDIAC: Regular rhythm, regular rate. S1/S2 are heard. No murmurs gallops or rubs. LUNGS: Clear to auscultation bilaterally. No wheeze, rhonchi or rales. No use of accessory muscles on inspiration or expiration. ABDOMEN: Soft, nontender. Nondistended. Bowel sounds heard in all 4 quadrants. No organomegaly or masses. Negative rebound, negative guarding EXTREMITIES: No edema, pulses are equal bilaterally. No cyanosis or clubbing NEUROLOGY: Mood and affect appear appropriate. Cranial nerves II through XII grossly intact. Moving all extremities, speech is clear Results - Labs CBC & Chem 7: 08/04/18 05:35 08/04/18 05:35 Laboratory Results - last 24 hr 08/03/18 08/03/18 08/03/18 11:50 11:50 11:50 CBC w Diff Auto diff final WBC 5.0 RBC 4.55 Hgb 14.5 Hct 41.7 MCV 91.8 MCH 31.9 MCHC 34.8 RDW 13.8 Plt Count 195 MPV 7.7 Neut % (Auto) 55.3 Lymph % (Auto) 23.3 Livingston % (Auto) 9.6 H Eos % (Auto) 10.9 H Baso % (Auto) 0.9 Neut # (Auto) 2.8 Lymph # (Auto) 1.2 Living[place] # (Auto) 0.5 Eos # (Auto) 0.5 H Baso # (Auto) 0.0 WBC Differential . Differential Comment . ESR PT 9.5 L INR 0.9 APTT 25.4 Sodium 139 Potassium 4.2 Chloride 105 Carbon Dioxide 24.5 Anion Gap 10 BUN 10 Creatinine 1.10 Estimated GFR 68 L Random Glucose 106 Calcium 8.9 Total Bilirubin Direct Bilirubin Indirect Bilirubin AST ALT Alkaline Phosphatase Ammonia Total Creatine Kinase 108 CK-MB (CK-2) Less than 1.0 Troponin I Less than 0.02 L Total Protein Albumin Triglycerides Cholesterol LDL Cholesterol, Calc HDL Cholesterol Cholesterol/HDL Ratio Vitamin B12 Folate TSH 08/03/18 08/03/18 08/03/18 17:03 17:03 17:03 CBC w Diff WBC RBC Hgb Hct MCV MCH MCHC RDW Plt Count MPV Neut % (Auto) Lymph % (Auto) Livingston % (Auto) Eos % (Auto) Baso % (Auto) Neut # (Auto) Lymph # (Auto) Livingston # (Auto) Eos # (Auto) Baso # (Auto) WBC Differential Differential Comment ESR 9 PT INR APTT Sodium Potassium Chloride Carbon Dioxide Anion Gap BUN Creatinine Estimated GFR Random Glucose Calcium Total Bilirubin 0.5 Direct Bilirubin 0.1 Indirect Bilirubin 0.4 AST 48 H ALT 45 Alkaline Phosphatase 71 Ammonia 25 Total Creatine Kinase 80 CK-MB (CK-2) Troponin I Less than 0.02 L Total Protein 7.4 Albumin 3.8 Triglycerides Cholesterol LDL Cholesterol, Calc HDL Cholesterol Cholesterol/HDL Ratio Vitamin B12 613 Folate Greater than 20.0 H TSH 0.642 08/03/18 08/04/18 08/04/18 23:45 05:35 05:35 CBC w Diff Auto diff final WBC 5.0 RBC 4.19 L Hgb 13.3 Hct 38.4 L MCV 91.7 MCH 31.8 MCHC 34.6 RDW 13.7 Plt Count 156 MPV 7.3 Neut % (Auto) 58.7 Lymph % (Auto) 23.5 Livingston % (Auto) 8.7 H Eos % (Auto) 8.1 H Baso % (Auto) 1.0 Neut # (Auto) 3.0 Lymph # (Auto) 1.2 Livingston # (Auto) 0.4 Eos # (Auto) 0.4 Baso # (Auto) 0.0 WBC Differential . Differential Comment . ESR PT INR APTT Sodium 140 Potassium 3.5 Chloride 106 Carbon Dioxide 26.5 Anion Gap 8 BUN 12 Creatinine 0.99 Estimated GFR 76 L Random Glucose 107 H Calcium 8.3 L Total Bilirubin Direct Bilirubin Indirect Bilirubin AST ALT Alkaline Phosphatase Ammonia Total Creatine Kinase 66 CK-MB (CK-2) Troponin I Less than 0.02 L Total Protein Albumin Triglycerides 376 H Cholesterol 157 LDL Cholesterol, Calc 31 HDL Cholesterol 51.1 Cholesterol/HDL Ratio 3.07 Vitamin B12 Folate TSH - Imaging Impressions Chest X-Ray 08/03/18 00:00 CONCLUSION: No evidence of acute cardiopulmonary process. Head CT 08/03/18 11:53 CONCLUSION: 1. Negative CT Head non contrast. 2. No evidence of acute infarct, hemorrhage, mass or edema. . - Procedures ECHOCARDIOGRAM CONCLUSIONS Normal left ventricular size. Mild concentric left ventricular hypertrophy. The left ventricular systolic function is low normal with an estimated ejection fraction in the range of 50- 55%. There is abnormal septal motion consistent with an intraventricular conduction delay. Trace aortic valve regurgitation. There is trace tricuspid valve regurgitation. The estimated pulmonary arterial pressure is 34 mmHg. Assessment and Plan - Assessment (1) Encephalopathy Code(s): G93.40 - Encephalopathy, unspecified Status: Acute (2) Hypertensive urgency Code(s): I16.0 - Hypertensive urgency Status: Acute (3) Chest pain Code(s): R07.9 - Chest pain, unspecified Status: Acute - Plan Hypertensive urgency -Patient presented with blood pressure 212/117 with associated chest pain, encephalopathy -Patient was given nitroglycerin x3 with improvement of his blood pressure and mentation -Patient's home medication was continued to include amlodipine, HCTZ, -addition of Lopressor, Nitropaste, -Vasotec as needed, clonidine as needed -Possible need to start Cardene if blood pressure is uncontrolled Chest pain, resolved -Patient is with increased risk factors include age, male, hypertension, hyperlipidemia -Patient had been ruled out for acute coronary event with serial cardiac enzymes remain negative -Serial EKGs were reviewed by myself which indicated sinus bradycardia, first- degree AV block, left bundle branch block. No acute changes -We will continue cardioprotection with aspirin, beta-mich, nitroglycerin, statin, amlodipine -Echocardiogram: See results -Consulted cardiology for further recommendations -Myocardial perfusion study was performed and indicated reversible perfusion defect along the inferior wall. Intermediate risk. Ejection fraction 56% -This was discussed with supervisor correspondence section Dr. Martin, who indicated the patient will be transferred to the main hospital for cardiac catheterization Encephalopathy -Could be possible hypertensive encephalopathy versus seizure activity -Continue monitor neurological function -Seizure precautions -Obtain EEG -Ativan as needed for seizures -CT of the brain was performed which did not indicate any acute abnormality -Discussed with neurology who indicated increase up to Keppra 500 mg twice daily. -Consulted neurology for further recommendations -Further laboratory studies to include B12, folate, sed rate, TSH, RPR, ammonia level, were unremarkable Hyperlipidemia -LDL 31 -Continue statin History of seizures -Home medication have been continued DVT prevention -Sequential compression devices -Subcutaneous heparin
--- NOTE | 2018-08-04 10:04 | ECG ---
Date Performed: 08/04/2018 Time Performed: 00:35:45 PTAGE: 63 years EKG: SINUS BRADYCARDIA WITH FIRST DEGREE AV BLOCK MARKED LEFT AXIS DEVIATION LEFT BUNDLE BRANCH BLOCK ABNORMAL ECG No significant change from prior electrocardiogram. PREVIOUS TRACING : 08/03/2018 17.16 DOCTOR: Elgin Adams Interpretating Date/Time 08/04/2018 10:03:37
[2018-08-04] MEDS: Senna/Docusate Sodium 8.6/50 MG Tablet PO SCH ×2 (11:17→20:33)
[2018-08-04] MEDS ORDERED: Regadenoson Inj 0.4 MG/5 ML Syringe IV.PUSH ONE (12:30)
--- NOTE | 2018-08-04 13:19 | NM ---
EXAM DATE: 08/04/2018 1:14 PM EST AGE/SEX: 63 years / Male INDICATIONS:Angina. . Mid chest pain for one day. CLINICAL DATA: This is the patient's initial encounter. Patient reports that signs and symptoms have been present for 1 day and indicates a pain score of 7/10. MEDICAL/SURGICAL HISTORY: Stroke. Hypertension. Appendectomy. COMPARISON: [facility] – [place], MYOCARDIAL PERF PHARM SPECT, 06/06/2013. . No external comparison. DOSE: 8.7 mCi Tc 99m Myoview at rest 26.1 mCi [id number] at stress 0.4 mg Lexiscan STRESS SYMPTOMS: Shortness of breath and flush. EJECTION FRACTION: 56 % TECHNIQUE: The patient underwent pharmacologic stress with infusion of prescribed dose. Continuous ECG tracing was monitored during stress. Gated SPECT imaging was performed after stress and conventi onal SPECT imaging was performed at rest. The examination was performed on a SPECT/CT scanner, both attenuation and non-corrected datasets were reviewed. FINDINGS: Distribution: The maximum perfused segment at stress is in the anterior wall. Perfusion Study: There is a moderate-sized reversible perfusion defect suspected along the inferior wall. A small fixed apical defect is noted. Gated Study: There are intact wall motion and wall thickening without hypokinetic or dyskinetic segm ents. The ejection fraction is calculated at 56%. RISK CATEGORY: Intermediate (1-3 % Annual Mortality Rate) CONCLUSION: 1. Reversible perfusion defect identified along the inferior wall. Small fixed apical defect. 2. Normal ejection fraction and wall motion. Electronically signed by: David Owens MD 08/04/2018 1:18 PM EST
--- NOTE | 2018-08-04 16:24 | MB ---
cc: Erasto Fabian MD, PhD DATE: 08/04/2018 REASON FOR CONSULTATION: Mental status change. HISTORY OF PRESENT ILLNESS: Mr. Monaco is a very nice 63-year-old man who presented to the hospital with confusion, mental status changes, found to be very hypertensive with a blood pressure of 212/117. He had no focal deficits. His pressure has been brought down and since then, his mental status has returned to normal. He also is being evaluated from the cardiac standpoint in preparation for a cardiac catheterization. NEUROLOGIC EXAMINATION: At this time, his mental status is normal. He is alert and oriented. Speech is normal. Cranial nerves intact. Motor exam reveals no focal deficit. IMAGING DATA: CT brain is within normal limits. IMPRESSION: Probable hypertensive encephalopathy, now resolved. Erasto Fabian MD, PhD SCOTT/lou , 03:46 PM , 03:50 PM
[2018-08-04] MEDS: levETIRAcetam 500 MG Tablet PO SCH (20:33)
[2018-08-05] MEDS: Sod Chloride 0.9% Inj 1,000 ML IV.CONT SCH ×3 (06:16→23:30)
[2018-08-05] MEDS: Heparin - SQ 10,000 UNITS/ML Vial SQ SCH ×2 (06:24→17:00)
[2018-08-05] MEDS: amLODIPine 10 MG Tablet PO SCH (08:31)
[2018-08-05] MEDS: levETIRAcetam 500 MG Tablet PO SCH ×2 (08:32→20:25)
[2018-08-05] MEDS: Metoprolol Tartrate 25 MG Tablet PO SCH ×2 (08:32→20:25)
[2018-08-05] MEDS: Aspirin 325 MG Tablet PO SCH (08:33)
[2018-08-05] MEDS: Allopurinol 300 MG Tablet PO SCH (08:33)
[2018-08-05] MEDS: Senna/Docusate Sodium 8.6/50 MG Tablet PO SCH ×2 (08:34→20:26)
--- NOTE | 2018-08-05 09:33 | P.CONCA ---
History of Present Illness Service: cardiology Consult date: 08/05/18 Reason for Consult: chest pain Primary Care Provider: [facility] Chief Complaint: Altered mentation, chest pain History of Present Illness: 63 yo M with HTN, HLD, seizure disorder and no prior cardiac history transferred from [facility] ED on 08/03/18 after waking up and "not feeling right" with elevated BP, SOB and chest pain. His SBP was 200 upon waking, he took his usual BP meds (amlodipine 10mg and HCTZ 12.5mg) and BP did not go down ; he experienced shortness of breath with mild substernal chest pain and came to the ED for evaluation. EKG was nonischemic and troponin levels x 3 negative. nuclear stress testing has revealed a reversible perfusion defect to inferior wall. Echo shows EF 50-55% with mild valvular disease. BP is now under good control with current medical therapy. He is resting comfortably without recurrence of chest pain or sob. Patient also reports a brief episode of altered mental state with a staring spell during the time of above symptoms, neurology is following and attributes this to hypertensive encephalopathy. Review of Systems All other systems reviewed negative except as stated in HPI PMFSH - History History Provided By: Patient, Family Member - Medical History Medical History: Medical History (Last Reviewed 08/04/18 @ 08:52 by Raul Blakely) Gout High cholesterol History of TIA (transient ischemic attack) History of peritonitis History of seizure RA (rheumatoid arthritis) Hypertension - Surgical History Surgical History: Surgical History (Last Reviewed 08/04/18 @ 08:52 by Raul Blakely) History of partial colectomy Hx of appendectomy - Family History Family History: Family History (Last Updated 08/03/18 @ 16:15 by ALEE Ronquillo) Father Family history of stroke - Tobacco History Second Hand Smoke Exposure: No Smoking Status: Never smoker - Alcohol History How Often Do You Have a Drink Containing Alcohol: Never - Substance Use History Substance History: No History of Abuse - Travel History Recent Travel in the [place] Within the Last 8 Weeks: No Recent Travel Out of the Country Within the Last 8 Weeks: No - Immunization History Tetanus Immunization: <5 Years Hx Influenza Vaccine This Season: Yes Medications and Allergies Allergies Allergy/AdvReac Type Severity Reaction Status Date / Time codeine Allergy Severe Hives Verified 08/03/18 12:19 tramadol AdvReac Severe UNABLE TO Verified 08/03/18 12:19 URINATE *MDRO Multi-Drug Resistant AdvReac Unknown Hives Uncoded 08/03/18 12:00 Organism Home Medications Medication Instructions Recorded Confirmed Type allopurinol 300 mg PO DAILY 08/03/18 08/03/18 History amlodipine 10 mg PO DAILY 08/03/18 08/03/18 History atorvastatin 10 mg PO DAILY 08/03/18 08/03/18 History hydrochlorothiazide 12.5 mg PO DAILY 08/03/18 08/03/18 History levetiracetam 500 mg PO DAILY 08/03/18 08/03/18 History thiamine HCl (vitamin B1) 100 mg PO DAILY 08/03/18 08/03/18 History Active Medications: Active Medications Acetaminophen (Tylenol) 650 mg PO Q4H PRN PRN Reason: Temp > 100.4 Last Admin: 08/04/18 15:44 Dose: 650 mg Al Hydroxide/Mg Hydroxide (Milk Of Merari Crow) 30 ml PO Q12H PRN PRN Reason: Mild Constipation Allopurinol (Zyloprim) 300 mg PO DAILY [facility] Last Admin: 08/05/18 08:33 Dose: 300 mg Amlodipine Besylate (Norvasc) 10 mg PO DAILY [facility] Last Admin: 08/05/18 08:31 Dose: 10 mg Aspirin (Aspirin) 325 mg PO DAILY [facility] Last Admin: 08/05/18 08:33 Dose: 325 mg Atorvastatin Calcium (Lipitor) 10 mg PO DAILY [facility] Last Admin: 08/05/18 08:33 Dose: 10 mg Bisacodyl (Dulcolax Supp) 10 mg RECTAL DAILY PRN PRN Reason: SEVERE CONSITIPATION Clonidine HCl (Catapres) 0.1 mg PO Q6H PRN PRN Reason: SBP>180, DBP>110 Last Admin: 08/04/18 03:56 Dose: 0.1 mg Enalaprilat (Vasotec Inj) 1.25 mg IV.PUSH Q6H PRN PRN Reason: SBP>160, DBP>90 Last Admin: 08/04/18 05:04 Dose: 1.25 mg Heparin Sodium (Porcine) (Heparin Inj) 5,000 units SQ Q12H [facility] Last Admin: 08/05/18 06:24 Dose: 5,000 units Hydrochlorothiazide (Microzide) 12.5 mg PO DAILY [facility] Last Admin: 08/05/18 08:33 Dose: 12.5 mg Sodium Chloride (Ns Inj) 1,000 mls @ 100 mls/hr IV.CONT .Q10H [facility] Last Admin: 08/05/18 06:16 Dose: Not Given Lactulose (Lactulose Liq) 30 ml PO DAILY PRN PRN Reason: SEVERE CONSITIPATION Levetiracetam (Keppra) 500 mg PO BID [facility] Last Admin: 08/05/18 08:32 Dose: 500 mg Lorazepam (Ativan Inj) 1 mg IV.PUSH Q15M PRN PRN Reason: SEIZURES Metoprolol Tartrate (Lopressor) 12.5 mg PO BID [facility] Last Admin: 08/05/18 08:32 Dose: 12.5 mg Miscellaneous (Pill Splitter) 1 each OTHER UNSCH PRN PRN Reason: SEE LABEL COMMENTS Nitroglycerin (Nitro-Bid 2% Oint) 1 inch TOPICAL Q6HR [facility] Last Admin: 08/05/18 06:18 Dose: Not Given Ondansetron HCl (Zofran Inj) 4 mg IV.PUSH Q6H PRN PRN Reason: NAUSEA OR VOMITING Senna/Docusate Sodium (Cherie-Colace) 1 tab PO BID [facility] Last Admin: 08/05/18 08:34 Dose: Not Given Sennosides (Senokot) 17.2 mg PO Q12H PRN PRN Reason: Moderate Constipation Temazepam (Restoril) 15 mg PO HS PRN PRN Reason: INSOMNIA Last Admin: 08/03/18 20:30 Dose: 15 mg Thiamine HCl (Vitamin B1) 100 mg PO DAILY [facility] Last Admin: 08/05/18 08:34 Dose: 100 mg Exam Vital signs: Vital Signs 08/04/18 10:00 08/04/18 11:00 08/04/18 12:00 Temperature Pulse Rate 54 L 54 L 52 L Respiratory Rate 17 21 16 Blood Pressure 97/52 L 97/64 L 103/66 Pulse Oximetry 08/04/18 12:12 08/04/18 13:16 08/04/18 13:40 Temperature Pulse Rate 56 L 58 L Respiratory Rate 21 20 Blood Pressure 107/64 Pulse Oximetry 08/04/18 14:00 08/04/18 15:00 08/04/18 16:00 Temperature Pulse Rate 64 72 66 Respiratory Rate 32 H 20 24 Blood Pressure Pulse Oximetry 08/04/18 16:32 08/04/18 17:00 08/04/18 17:56 Temperature 97.9 F Pulse Rate 66 66 72 Respiratory Rate 22 19 28 H Blood Pressure 102/63 121/73 Pulse Oximetry 08/04/18 19:00 08/04/18 20:00 08/04/18 21:00 Temperature 97.7 F Pulse Rate 66 65 60 Respiratory Rate 18 Blood Pressure 136/79 Pulse Oximetry 98 08/04/18 23:00 08/05/18 00:00 08/05/18 04:00 Temperature 97.7 F 97.9 F Pulse Rate 60 53 L 55 L Respiratory Rate 18 16 Blood Pressure 142/89 H 126/76 Pulse Oximetry 98 99 08/05/18 07:00 08/05/18 08:00 08/05/18 09:00 Temperature 98.4 F Pulse Rate 64 68 69 Respiratory Rate 14 Blood Pressure 133/87 Pulse Oximetry 98 Intake & Output 08/04/18 08/05/18 08/05/18 18:59 06:59 18:59 Intake Total 397 / 397 480 / 480 Output Total 350 / 350 500 / 500 Balance 47 / 47 -20 / -20 Weight 72.1 kg Intake: IV 387 / 387 NS Inj 1,000 ML @ 100 mls/hr IV 387 / 387 .CONT .Q10H [facility] Rx#:[id number] Oral 480 / 480 Output: Urine 350 / 350 500 / 500 Narrative: GENERAL: SKIN: Warm and dry. HEAD: Normocephalic. EYES: No scleral icterus. No injection or drainage. NECK: Supple, trachea midline. No JVD or lymphadenopathy. CARDIOVASCULAR: Regular rate and rhythm without murmurs, gallops, or rubs. RESPIRATORY: Breath sounds equal bilaterally. No accessory muscle use. GASTROINTESTINAL: Abdomen soft, non-tender, nondistended. MUSCULOSKELETAL: No cyanosis, or edema. Results 08/04/18 05:35 08/04/18 05:35 Cardiac Enzymes 08/03/18 08/03/18 08/03/18 Range/Units 11:50 17:03 23:45 AST 48 H (15-37) U/L CK-MB (CK-2) Less than 1.0 (0.5-3.6) ng/mL Troponin I Less than 0.02 L Less than 0.02 L Less than 0.02 L (0.02-0.05) ng/mL Coagulation 08/03/18 Range/Units 11:50 PT 9.5 L (9.8-11.6) sec APTT 25.4 (23.4-31.7) sec Lipids 08/03/18 Range/Units 23:45 Triglycerides 376 H (42-150) mg/dL Cholesterol 157 (120-200) mg/dL HDL Cholesterol 51.1 (40.0-60.0) mg/dL Cholesterol/HDL Ratio 3.07 Ratio CBC 08/03/18 08/04/18 Range/Units 11:50 05:35 WBC 5.0 5.0 (4.0-11.0) th/mm3 RBC 4.55 4.19 L (4.50-5.90) mil/mm3 Hgb 14.5 13.3 (13.0-17.0) gm/dL Hct 41.7 38.4 L (39.0-51.0) % Plt Count 195 156 (150-450) th/mm3 Neut # (Auto) 2.8 3.0 (1.8-7.7) th/mm3 Lymph # (Auto) 1.2 1.2 (1.0-4.8) th/mm3 Humphreys # (Auto) 0.5 0.4 (0.0-0.9) th/mm3 Eos # (Auto) 0.5 H 0.4 (0.0-0.4) th/mm3 Baso # (Auto) 0.0 0.0 (0.0-0.2) th/mm3 Comprehensive Metabolic Panel 08/03/18 08/03/18 08/04/18 Range/Units 11:50 17:03 05:35 Sodium 139 140 (136-145) meq/L Potassium 4.2 3.5 (3.5-5.1) meq/L Chloride 105 106 (98-107) meq/L Carbon Dioxide 24.5 26.5 (21.0-32.0) meq/L BUN 10 12 (7-18) mg/dL Creatinine 1.10 0.99 (0.60-1.30) mg/dL Calcium 8.9 8.3 L (8.5-10.1) mg/dL Direct Bilirubin 0.1 (0.0-0.2) mg/dL Indirect Bilirubin 0.4 (0.0-0.8) mg/dL AST 48 H (15-37) U/L ALT 45 (12-78) U/L Alkaline Phosphatase 71 (45-117) U/L Total Protein 7.4 (6.4-8.2) g/dL Albumin 3.8 (3.4-5.0) g/dL Intake and Output 08/04/18 08/05/18 08/05/18 22:59 06:59 14:59 Intake Total 240 / 240 240 / 240 Output Total 500 / 500 Balance 240 / 240 -260 / -260 Intake: Oral 240 / 240 240 / 240 Output: Urine 500 / 500 Other: Weight 72.1 kg - Imaging and Cardiology Imaging: Impressions Chest X-Ray 08/03/18 00:00 CONCLUSION: No evidence of acute cardiopulmonary process. Head CT 08/03/18 11:53 CONCLUSION: 1. Negative CT Head non contrast. 2. No evidence of acute infarct, hemorrhage, mass or edema. . Myocardial Perfusion Scan Nuc Med 08/04/18 06:00 CONCLUSION: 1. Reversible perfusion defect identified along the inferior wall. Small fixed apical defect. 2. Normal ejection fraction and wall motion. Assessment and Plan - Assessment (1) Hypertensive urgency Code(s): I16.0 - Hypertensive urgency Status: Acute (2) Chest pain Code(s): R07.9 - Chest pain, unspecified Status: Acute Plan: Moderate ischemic defect. Intermediate risk. NPO p [facility] in am - Plan 63 yo M with HTN, HLD, seizure disorder and no prior cardiac history transferred from [facility] ED on 08/03/18 after waking up and "not feeling right" with elevated BP, SOB and chest pain. His SBP was 200 upon waking, he took his usual BP meds (amlodipine 10mg and HCTZ 12.5mg) and BP did not go down ; he experienced shortness of breath with mild substernal chest pain and came to the ED for evaluation. EKG was nonischemic and troponin levels x 3 negative. nuclear stress testing has revealed a reversible perfusion defect to inferior wall. Echo shows EF 50-55% with mild valvular disease. BP is now under good control with current medical therapy. He is resting comfortably without recurrence of chest pain or sob. Patient also reports a brief episode of altered mental state with a staring spell during the time of above symptoms, neurology is following and attributes this to hypertensive encephalopathy. atypical chest pain- abnormal nuclear stress test. Will proceed with C tomorrow morning. npo after midnight hypertensive urgency- SBP now 120-130 with current medical regimen: metoprolol 12.5mg BID, HCTZ 12.5mg daily, amlodipine 10mg, vasotec and clonidine prn. cont asa and atorvastatin
--- NOTE | 2018-08-05 11:37 | TR ---
Date Performed: 08/04/2018 Time Performed: 12:44:05 DOCTOR: Kai Nunez DRUG LIST: CLINICAL HISTORY: LBBB REASON FOR TEST: LBBB REASON FOR ENDING: OBSERVATION: CONCLUSION: COMMENTS: Lexiscan stress test was performed under standard four minute protocol. Radionuclide was injected one minute prior to ending the test. No electrocardiographic abormalities were present t o suggest ischemia. Nuclear imaging and interpretation are pending.
--- NOTE | 2018-08-05 14:20 | P.PN ---
Subjective Interval history: Nursing denies any acute deteriorations overnight. Patient himself has no new complaints. No chest pain no shortness of breath. Physical Exam Vital signs: Vital Signs 08/04/18 15:00 08/04/18 16:00 08/04/18 16:32 Temperature Pulse Rate 72 66 66 Respiratory Rate 20 24 22 Blood Pressure 102/63 Pulse Oximetry 08/04/18 17:00 08/04/18 17:56 08/04/18 19:00 Temperature 97.9 F Pulse Rate 66 72 66 Respiratory Rate 19 28 H Blood Pressure 121/73 Pulse Oximetry 08/04/18 20:00 08/04/18 21:00 08/04/18 23:00 Temperature 97.7 F Pulse Rate 65 60 60 Respiratory Rate 18 Blood Pressure 136/79 Pulse Oximetry 98 08/05/18 00:00 08/05/18 04:00 08/05/18 07:00 Temperature 97.7 F 97.9 F Pulse Rate 53 L 55 L 64 Respiratory Rate 18 16 Blood Pressure 142/89 H 126/76 Pulse Oximetry 98 99 08/05/18 08:00 08/05/18 09:00 08/05/18 10:00 Temperature 98.4 F Pulse Rate 68 69 66 Respiratory Rate 14 Blood Pressure 133/87 Pulse Oximetry 98 08/05/18 11:00 08/05/18 12:00 08/05/18 13:00 Temperature 98.2 F Pulse Rate 60 61 74 Respiratory Rate 16 Blood Pressure 136/83 Pulse Oximetry 97 08/05/18 14:00 Temperature Pulse Rate 79 Respiratory Rate Blood Pressure Pulse Oximetry Intake & Output 08/04/18 08/05/18 08/05/18 18:59 06:59 18:59 Intake Total 397 / 397 480 / 480 Output Total 350 / 350 500 / 500 Balance 47 / 47 -20 / -20 Weight 72.1 kg Intake: IV 387 / 387 NS Inj 1,000 ML @ 100 mls/hr IV 387 / 387 .CONT .Q10H GLORIA Rx#:[id number] Oral 480 / 480 Output: Urine 350 / 350 500 / 500 Narrative: Sleeping, easily awoken No acute distress Clear lungs bilaterally, unlabored breathing Heart sounds regular rate and rhythm, no murmurs Results - Labs CBC & Chem 7: 08/04/18 05:35 08/04/18 05:35 - Procedures ECHOCARDIOGRAM CONCLUSIONS Normal left ventricular size. Mild concentric left ventricular hypertrophy. The left ventricular systolic function is low normal with an estimated ejection fraction in the range of 50- 55%. There is abnormal septal motion consistent with an intraventricular conduction delay. Trace aortic valve regurgitation. There is trace tricuspid valve regurgitation. The estimated pulmonary arterial pressure is 34 mmHg. Assessment and Plan - Assessment (1) Encephalopathy Code(s): G93.40 - Encephalopathy, unspecified Status: Acute (2) Hypertensive urgency Code(s): I16.0 - Hypertensive urgency Status: Acute (3) Chest pain Code(s): R07.9 - Chest pain, unspecified Status: Acute - Plan 63-year-old white male admitted with chest pain, hypertensive emergency, hypertensive encephalopathy. Chest pain has resolved. With abnormal myocardial perfusion study, cardiology plans for heart cath tomorrow. Echocardiogram shows intact EF. Hypertensive emergency also has resolved as well as hypertensive encephalopathy with antihypertensives. Appreciate neurology input. EEG is pending but will likely be unremarkable. CT of the brain is unremarkable for any acute abnormalities. Chest pain Hypertension -Continue aspirin, amlodipine, HCTZ, Lopressor -Heart cath tomorrow Hyperlipidemia -LDL 31 -Continue statin History of seizures -Home medication have been continued DVT prevention -Sequential compression devices -Subcutaneous heparin
[2018-08-06] MEDS: Sod Chloride 0.9% Inj 1,000 ML IV.CONT SCH (03:33)
[2018-08-06] MEDS: Heparin - SQ 10,000 UNITS/ML Vial SQ SCH (05:06)
[2018-08-06] MEDS ORDERED: Heparin/NS PF Inj 1,000 ML ONE (08:28)
[2018-08-06] MEDS ORDERED: fentaNYL Citrate Inj 100 MCG/2 ML Ampul ONE (08:29)
[2018-08-06] MEDS ORDERED: Heparin 10,000 UNITS/10 ML Vial (for IV use) ONE (08:29)
[2018-08-06] MEDS ORDERED: Lidocaine PF 1% Inj 30 ML Vial ONE (08:40)
--- NOTE | 2018-08-06 09:20 | CATHPROC ---
[employer] HIS Report Study Information Study Number Admission Scheduled Start Study Start [id number] Aug 03 2018 2:06PM 08/06/2018 Aug 06 2018 8:10AM [place] [facility] Cardiac Catheterization Admit Source Facility Department Emergency department [facility] - Fuse Assembler Physician and Clinical Staff Initial Basil Barber Product Builder Len Mccall,BALJIT Recorder Landon Vo,RT(R) Scrub Ti Parker,RT(R) Procedures Performed Procedure Location (Site) Vessel Name Coronary Angiograms LCA Left Coronary Coronary Angiograms RCA Right Coronary L Heart Cath Equipment Time Napper Fixer Description Size Mfg Part Number Used/Scraped TRANSDUCER, TRUWAVE [id number] 08:28 COLUNGA GUZMAN * Used W/STOCKCOCK *[id number] *[id number] *[id number] 08:28 Popego BLANKET,WARM AIR CCL * Used *[id number] 08:28 [employer]go PACK, CCL CUSTOM * Used *[id number] 08:28 [employer] SUPPORT, ARTERIAL ADULT [id number] *[id number] Used BAND, RADIAL COMPRESSION TR [id number] 09:11 Trochet 24CM Used SHORT 24 *[id number] SHEATH, FR6 RADIAL PRELUDE 08:28 Trochet FR 6 [id number] Used EASE 11CM [id number] 08:28 Trochet WIRE, EXCHANGE 260CM 3MMJ 260CM Used *[id number] 08:28 NAMIC MANIFOLD, 4 PORT * Used *[id number] 08:28 NYCOMED OMNIPAQUE, 350 MG, 150ML 150ML [id number] Used History: Current Medications Medication Dosage/Unit Route Frequency Last Date/Time Taken Allopurinol ASA Statins (any) CLONIDINE VASOTEC NORVASC History: Allergies Allergy Reaction codeine Hives tramadol UNABLE TO URINATE *MDRO Multi-Drug Resistant Hives Organism History: Risk Factors Family History of Hypertension Dyslipidemia Previous [facility] Previous Heart Failure Premature CAD Yes Yes No No No Prior Valve Prior PCI Prior CABG Surgery No No No Cerebrovascular Peripheral Artery Chronic Lung On Dialysis Diabetes Disease Disease Disease No Yes No No No History: Symptoms/Diagnosis Selection Items Chest pain History: Stress Tests Stress or Imaging Studies Performed Yes Standard Exercise Stress Test No Stress Echo No Stress Test SPECT Stress Test SPECT Result Stress Test SPECT Ischemia Risk/Extent Yes Positive Intermediate Stress Test CMR No Cardiac CTA Coronary Calcium Score No No History: Other Disease Selection Items HTN History: Other Current Smoker No Labs Hgb (g/dl) Hct (%) RBC (MIL/MM3) WBC (l/cumm) Platelets (thousands) 11.60-17.00 35.00-51.00 4.00-5.90 4.00-11.00 150.00-450.00 13.3 38.4 4.1 5 156 Glucose (mg/dl) BUN (mg/dl) Creatinine (mg/dl) BUN:Creatinine (1:x) 74.00-106.00 7.00-18.00 0.50-1.30 10.00-20.00 107 12 1.0 12 Na (meq/l) K (meq/l) Cl (meq/l) CO2 (mmol/L) Ca (mg/dl) 136.00-145.00 3.50-5.10 98.00-107.00 21.00-32.00 8.50-10.10 140 3.5 106 26.5 8.3 PT (sec) PTT (sec) INR (PTT:PT) 9.80-11.60 24.30-30.10 0.90-1.10 9.5 25.4 0.9 Troponin I (ng/ml) CPK (u/l) CPK-MB (ng/ML) 0.02-0.05 26.00-308.00 0.50-3.60 0.02 108 Not Drawn Medication Medication Total Dose (Bolus/Oral) Medication Total Dosage/Unit 1% XYLOCAINE 5 mL FENTANYL 50 mcg HEPARIN 5000 units NTG (IC) 200 mcg VERSED 2 mg Medications (Bolus/Oral) Medication Time Given Dosage/Unit Administered By Reason VERSED 08/06/2018 8:59:12 AM 2 mg Len Mccall 2 mg VERSED given in lab by Len Mccall, BALJIT in Right Forearm via Peripheral IV. FENTANYL 08/06/2018 8:59:23 AM 50 mcg Len Mccall 50 mcg FENTANYL given in lab by Len Mccall, RN in Right Forearm via Peripheral IV. 1% XYLOCAINE 08/06/2018 8:59:24 AM 5 mL Basil Martin 5 mL 1% XYLOCAINE given in lab by Basil Martin in Right Radial via Subcutaneous. NTG (IC) 08/06/2018 9:03:18 AM 200 mcg Basil Martin 200 mcg NTG (IC) given in lab by Basil Martin in Right Radial via Intra-arterial. HEPARIN 08/06/2018 9:03:38 AM 5000 units Len Mccall 5000 units HEPARIN given in lab by Len Mccall, RN in Right Forearm via Peripheral IV. Medication (Drip) Medication Time Given Dosage/Unit Concentration/Unit Diluent (ml) Solution IV Solutions 08/06/2018 8:28:32 AM 0 mL (IV) 1000 NaCl .9 Patient arrived on IV Solutions in Right Forearm via Peripheral IV. Pump/Drip Flow = 20 ml/hr using N aCl .9. Initial Case Assessment Cardiovascular HR Rhythm NIBP Chest Pain 62 Sinus 151/97 0 Edema Present Skin color Skin None Normal Warm Dry Circulatory - Right Pulses Dorsalis Pedis Femoral Radial 3 3 3 Scale (0,1,2,3,4,d) Circulatory - Left Pulses Dorsalis Pedis Femoral Radial 3 3 Scale (0,1,2,3,4,d) Neurological State Oriented to time-place- Alert Moves all extremities person Respiration - General Respiration Rate SpO2 (%) O2 (lpm) (B/min) 10 98 0 Final Case Assessment Cardiovascular HR Rhythm NIBP Chest Pain 81 Sinus 124/78 0 Edema Present Skin color Skin None Normal Warm Dry Circulatory - Right Pulses Dorsalis Pedis Femoral Radial 3 3 3 Scale (0,1,2,3,4,d) Circulatory - Left Pulses Dorsalis Pedis Femoral Radial 3 3 Scale (0,1,2,3,4,d) Neurological State Oriented to time-place- Alert Moves all extremities person Respiration - General Respiration Rate SpO2 (%) O2 (lpm) (B/min) 16 95 0 Chronological Log Time Study Chronological Log 6:21:00 Patient moved to stretcher 8:23:01 Patient arrived via Bed. 8:23:02 Patient Name, D.O.B, / Armband Verified By R.N. 8:23:07 Consent signed by the physician and the patient and verified by the Fuse Assembler staff. 8:28:09 Pre-op and post- op instructions given; patient acknowledges understanding of instructions. 8:28:10 Verbal Stimulation=2 Physical Stimulation=2 Airway=2 Respiration=2 TOTAL=8. (0=absent, 1=li mited, 2=present) 8:28:12 Presedation assessment performed by Fuse Assembler RN. 8:28:14 Allens test performed on the right radial and ulnar artery. 8:28:19 Patient has been NPO for More than 6Hrs. 8:28:20 Skin Breakdown- none per patient. 8:28:21 Patient Warmer Placed on the Table. 8:28:24 Kristine Prominences Protected 8:28:27 A # 20 IV was noted in the Forearm (right). Grade = 0 8:28:32 Patient arrived on IV Solutions in Right Forearm via Peripheral IV. Pump/Drip Flow = 20 ml/ hr using NaCl .9. 8:28:33 History and physical on the chart or being dictated. Assessment: Initial Case, HR=62 BPM, Rhythm=Sinus, WSRT=256/97 mmhg, Chest Pain=0, Edema=None, Color=Normal, Skin = Warm, Dry Right Pulses: Chaz Ped=3, Femoral=3, Radial=3 8:28:33 Left Pulses: Chaz Ped=3, Femoral=3 Neurological: State=Alert, Ox3, BROOKS Respiration: Resp=10 B/min, SpO2=98 %, O2=0 lpm Vitals capture started with the following parameters, Patient=Adult, Interval=5 min, Initial Pre ixkpv=748 mmHg, 8:28:39 Deflation Rate=5 mmHg, Cuff placed on Left Arm 8:29:49 HR=69 bpm, EDIG=773/97 mmhg, SpO2=98.0 %, Resp=20 B/min, Pain=0, Jamel=10, Hatfield=2 8:34:15 HR=60 bpm, SGXP=150/94 mmhg, SpO2=98.0 %, Resp=9 B/min, Pain=0, Jamel=10, Hatfield=2 8:39:18 HR=64 bpm, QMBI=639/91 mmhg, SpO2=96.0 %, Resp=16 B/min, Pain=0, Jamel=10, Hatfield=2 8:39:52 Right Radial and groin(s) prepped with 2% chlorhexidine, and draped after a 3 min. waiting t harmeet. 8:41:59 paged 8:44:17 HR=68 bpm, LYMC=728/86 mmhg, SpO2=97.0 %, Resp=18 B/min, Pain=0, Jamel=10, Hatfield=2 8:47:33 Pressure channel 2 zeroed. 8:49:23 HR=64 bpm, PHZT=189/87 mmhg, SpO2=94.0 %, Resp=13 B/min, Pain=0, Jamel=10, Hatfield=2 8:50:36 MD responded 8:53:34 MD arrived. 8:54:22 HR=63 bpm, MCQW=650/80 mmhg, SpO2=95.0 %, Resp=17 B/min, Pain=0, Jamel=10, Hatfield=2 8:55:31 Reference ECG taken Time Out. Correct patient, correct procedure, correct physician, labs, allergies, and equipment verified with hoisting laborer 8:58:47 team present. Fire risk assesment completed (see hard stop sheet for coding). Time Out Concu rred by MD and individual staff in procedure. 8:59:12 2 mg VERSED given in lab by Len Mccall RN in Right Forearm via Peripheral IV. 8:59:19 HR=65 bpm, YFTZ=005/96 mmhg, SpO2=95.0 %, Resp=15 B/min, Pain=0, Jamel=10, Hatfield=2 8:59:23 50 mcg FENTANYL given in lab by Len Mccall, BALJIT in Right Forearm via Peripheral IV. 8:59:24 5 mL 1% XYLOCAINE given in lab by Basil Martin in Right Radial via Subcutaneous. 8:59:25 Case Start 9:02:25 Access site was Right Radial Artery . A SHEATH, FR6 RADIAL PRELUDE EASE 11CM FR 6 was advanced into the Radial (right) using the Lauren esquivel 9:02:34 technique. 9:03:18 200 mcg NTG (IC) given in lab by Basil Martin in Right Radial via Intra-arterial. 9:03:38 5000 units HEPARIN given in lab by Len Mccall, BALJIT in Right Forearm via Peripheral IV. 9:04:22 HR=72 bpm, OODH=102/70 mmhg, Resp=10 B/min, Pain=0, Jamel=10, Hatfield=2 A JR 5.0 INFINITI CATHETER FR 5 was advanced over a wire. OMNIPAQUE, 350 MG, 150ML 150ML was use d for 9:04:26 injections. 9:04:45 Wire removed 9:05:39 The RCA was injected and visualized at various angles. OMNIPAQUE, 350 MG, 150ML 150ML used. After removing the current catheter a JL 3.5 INFINITI CATHETER FR 5 was advanced over a WIRE, EX CHANGE 260CM 9:06:02 3MMJ 260CM. 9:07:49 The LCA was injected and visualized at various angles. OMNIPAQUE, 350 MG, 150ML 150ML used. 9:08:35 Catheter was removed 9:08:41 Case End (Physician broke scrub) 9:09:12 HR=82 bpm, EHKB=310/70 mmhg, SpO2=91.0 %, Resp=18 B/min, Pain=0, Jamel=10, Hatfield=2 Radial Compression Device Used. 10 mLs of air placed in BAND, RADIAL COMPRESSION TR SHORT 24 24C M. Affected 9:13:20 hand 94 % O2 saturation. 9:13:40 No case complications noted. 9:13:42 Cine recording checked. 9:14:14 HR=71 bpm, RCRP=867/78 mmhg, SpO2=92.0 %, Resp=11 B/min, Pain=0, Jamel=10, Hatfield=2 9:14:27 A Left Heart Cath was performed. Assessment: Final Case, HR=81 BPM, Rhythm=Sinus, VNFO=874/78 mmhg, Chest Pain=0, Edema=None, Color=Normal, Skin = Warm, Dry Right Pulses: Chaz Ped=3, Femoral=3, Radial=3 9:14:36 Left Pulses: Chaz Ped=3, Femoral=3 Neurological: State=Alert, Ox3, BROOKS Respiration: Resp=16 B/min, SpO2=95 %, O2=0 lpm 9:18:49 Vitals capture stopped. End Study - Contrast Media Used In Study Contrast Total Opened (mL) Total Used (mL) Total Wasted (mL) Omnipaque 150 45 105 End Study - Maximum Contrast Load Max Contrast Load (mL) 354.5 End Study - Radiation Exposure Fluoro Time (minutes) 1.0 End Study - Patient Disposition Complications Transferred To Interventional Outcome No Telemetry Bed No attempt made
[2018-08-06] MEDS: Metoprolol Tartrate 25 MG Tablet PO SCH (10:10)
[2018-08-06] MEDS: levETIRAcetam 500 MG Tablet PO SCH (10:10)
[2018-08-06] MEDS: Aspirin 325 MG Tablet PO SCH (10:11)
[2018-08-06] MEDS: amLODIPine 10 MG Tablet PO SCH (10:11)
[2018-08-06] MEDS: Allopurinol 300 MG Tablet PO SCH (10:11)
[2018-08-06] MEDS: Senna/Docusate Sodium 8.6/50 MG Tablet PO SCH (10:12)
[2018-08-06] MEDS ORDERED: Iohexol 350 MG/ML 50 ML Vial (for Cath Lab) IVCONTRAST ONE (11:13)
[2018-08-06 14:39] VITALS: O2SAT 98
[2018-08-06 14:44] VITALS: BP 116/84; RESP 16; TEMP 98.4
--- NOTE | 2018-08-06 16:04 | P.DS ---
Date of admission: 08/03/18 14:06 Primary care physician: Physician 's [facility] Brief History from admission: 63-year-old male with known history of hypertension, hyperlipidemia, seizure disorder, gout, arthritis who presented to the hospital for evaluation of chest pain, altered mentation. Patient was in his normal state of health until this morning when he woke up and he was having some discomfort in his chest located in the midsternal region radiating up into the left side of his neck and down to his left arm. Patient denied any nausea, vomiting, lightheadedness, dizziness. Patient states that he did have episodes of where he could felt as if he could not catch his breath. He denied any diaphoresis. His pain remained persistent for approximately 2 hours prior to him coming to the hospital. However during this time the patient was sitting in his chair and he Touching his left arm and neck in which his asked him what the problem was and he was complaining of pain at that time. The patient had an episode of altered mentation where he appeared to be looking off into space and unresponsive. Because of the combination of his symptoms they came to the hospital for evaluation. Upon presentation to the emergency department patient was found to have rather accelerated hypertension with blood pressure 212/117, associated altered mentation, chest pain which meets criteria for hypertensive urgency patient was given 3 nitroglycerin tablets with improvement of his blood pressure and chest pain. Patient has had these symptoms previously. Patient does get these episodes of altered mentation where he stares off into space quite frequently. They indicate usually happens to him during times of exertion. Patient does not have any tonic-clonic movements during these episodes. There are other episodes when he is having his seizures arms do come up into his face and chest area and stiffen up but no tremors or shaking. No loss of bowel or bladder control. Patient is followed by the [facility] but does not have a neurologist. They are in the process of getting a workup performed. Patient also has been experiencing cardiac issues where they are undergoing management by the [facility]. It was indicated that he has a abnormal heart rate and there is plans to do a Holter monitor. Echocardiogram. He does not have a chief science officer at this time. Patient indicates that his last stress test was over a year ago. Patient currently is asymptomatic. DS: Medications - Discharge Medications Prescriptions: aspirin 325 mg PO DAILY #30 tab levetiracetam [Keppra] 500 mg PO BID #60 tab metoprolol tartrate 12.5 mg PO BID #30 tab DS: Summary Hospital Course: Hypertensive urgency Patient presented with blood pressure 212/117 with associated chest pain, encephalopathy. Patient was given nitroglycerin x3 with improvement of his blood pressure and mentation. Head CT was negative. Patient's home medications were continued to include amlodipine, HCTZ. We added Lopressor and Nitropaste. EEG was negative. Keppra was increased to 500 mg BID. Neurology was consulted and thought encephalopathy was s/t hypertension. The pt will follow up with his PCP and neurology upon discharge. Chest pain EKG indicated sinus bradycardia, first-degree AV block, left bundle branch block. No acute changes. We continued cardioprotection with aspirin, beta- mich, nitroglycerin, statin, amlodipine. Echo with: The left ventricular systolic function is low normal with an estimated ejection fraction in the range of 50-55%; There is abnormal septal motion consistent with an intraventricular conduction delay; Trace aortic valve regurgitation; There is trace tricuspid valve regurgitation; The estimated pulmonary arterial pressure is 34 mmHg. We consulted cardiology. Myocardial perfusion study was performed and indicated reversible perfusion defect along the inferior wall; Intermediate risk; Ejection fraction 56%. S/p cath 08/06 which was negative for obstructive disease. The pt was cleared for discharge by cardiology. - Time Spent with Patient Total time spent providing and/or coordinating discharge services: Greater than 30 minutes - Quality: VTE Deep Vein Thrombosis/Pulmonary Embolism Present on Admission: Yes Exam Vital signs: Vital Signs 08/05/18 16:00 08/05/18 17:00 08/05/18 18:00 Temperature 98.0 F Pulse Rate 68 75 82 Respiratory Rate 16 Blood Pressure 145/94 H Pulse Oximetry 99 08/05/18 19:00 08/05/18 20:00 08/05/18 21:00 Temperature 98.3 F Pulse Rate 77 74 80 Respiratory Rate 20 Blood Pressure 145/91 H Pulse Oximetry 98 08/05/18 22:00 08/05/18 23:00 08/06/18 00:00 Temperature 98 F Pulse Rate 64 66 60 Respiratory Rate 18 Blood Pressure 154/96 H Pulse Oximetry 97 08/06/18 01:00 08/06/18 02:00 08/06/18 03:00 Temperature Pulse Rate 62 64 61 Respiratory Rate Blood Pressure Pulse Oximetry 08/06/18 03:43 08/06/18 04:00 08/06/18 05:00 Temperature 98 F Pulse Rate 62 62 61 Respiratory Rate 18 Blood Pressure 133/89 Pulse Oximetry 97 08/06/18 06:00 08/06/18 07:00 08/06/18 08:00 Temperature 97.9 F Pulse Rate 63 58 L 68 Respiratory Rate 18 Blood Pressure 131/84 Pulse Oximetry 98 08/06/18 12:00 Temperature 98.4 F Pulse Rate 74 Respiratory Rate 16 Blood Pressure 116/84 Pulse Oximetry 98 Intake & Output 08/05/18 08/06/18 08/06/18 18:59 06:59 18:59 Intake Total 1500 / 1500 480 / 480 Output Total 700 / 700 Balance 1500 / 1500 -220 / -220 Weight 70.9 kg Intake: Oral 1500 / 1500 480 / 480 Output: Urine 700 / 700 Other: # Voids 4 # Bowel Movements 1 Results Procedures completed during hospitalization: Cardiac cath Labs on day of discharge: Labs from last 24 hours 08/03/18 17:03 RPR Nonreactive - Impressions ITS Impressions Chest X-Ray 08/03/18 00:00 CONCLUSION: No evidence of acute cardiopulmonary process. Head CT 08/03/18 11:53 CONCLUSION: 1. Negative CT Head non contrast. 2. No evidence of acute infarct, hemorrhage, mass or edema. . Myocardial Perfusion Scan Nuc Med 08/04/18 06:00 CONCLUSION: 1. Reversible perfusion defect identified along the inferior wall. Small fixed apical defect. 2. Normal ejection fraction and wall motion. Discharge Plan - Discharge Disposition Patient Disposition: 01 Discharge Home - Discharge Condition Condition: Stable - Discharge Order Discharge Orders: Discharge Order (Routine); Ordered 08/06/18 Ordered By: Dane Junior Cardiology Clear for Discharge (Routine); Ordered 08/06/18 Ordered By: Basil Martin - Discharge Details Anticipated Discharge Date: 08/06/18 - Physicians Team Primary Care Provider: [facility],Physician 's Attending Provider: Dane Junior Other Providers: Basil Martin MD ; Erasto Fabian MD, PhD
[2018-08-06 17:10] VITALS: PULSE 66
--- NOTE | 2018-08-06 19:43 | MG ---
cc: Erasto Fabian MD, PhD TEST NUMBER: [id number] TECHNIQUE: This is a 17-channel EEG. DESCRIPTION: Background rhythm symmetrical alpha, frequency 8-10 Hz, amplitude 30-40 microvolts. There is muscle artifact. No lateralizing features are identified. During photic stimulation, there is a normal posterior driving response seen. No epileptiform discharges are seen. Hyperventilation was not done. INTERPRETATION: This is a normal electroencephalogram. Erasto Fabian MD, PhD SCOTT/lou , 07:20 PM , 07:24 PM
--- NOTE | 2018-09-03 13:40 | MA ---
cc: Basil Martin MD DATE: 08/06/2018 PROCEDURES PERFORMED: 1. Fluoroscopy with interpretation. 2. Coronary angiography. METHOD: Risks, benefits, alternatives were discussed with the patient. The patient understood and consented to the procedure. The patient was brought into the cardiac catheterization lab and placed on the catheterization table. The right wrist was anesthetized with 2% lidocaine. The right radial artery was cannulated and a 6-Namibian 7 cm sheath was placed without difficulty; 200 mcg of intraarterial nitroglycerin. Additionally, 3000 units of intravenous heparin was administered. CORONARY ANGIOGRAPHY: 1. Left main coronary artery is angiographically normal. 2. Left anterior descending coronary artery is tortuous, but angiographically normal. 3. Left circumflex coronary artery is tortuous, but angiographically normal. 4. Right coronary artery is a dominant vessel giving rise to the posterior descending coronary artery. Right coronary artery is angiographically normal. CONCLUSIONS: Angiographically normal coronary arteries. PLAN: We will monitor and follow patient for any post-procedure complications; anticipate potential discharge. Basil Martin MD NATASHA/ld , 12:59 PM , 01:06 PM
== END 2018-08-06 17:09 | disposition home or self-care (01) ==
LOC: PHED 11:44 → PHEDA 14:06 → INTOOBSV 14:06 → PHICU 15:15 → HCIS 08-04 18:46
PROVIDERS: ADMIT Hospitalist; ATTEND Hospitalist
CPT/HCPCS: 70450; 71010; 71045; 78452; 80048; 80061; 80076; 82140; 82550; 82552; 82607; 82746; 84443; 84484; 85025; 85610; 85651; 85652; 85730; 86592; 93005; 93017; 93306; 93454; 95819; 97161; 99152; 99285; A9502; C1769; C1893; G0378; J1644; J2250; J2785; J3010; J7030; Q9967